=== PATIENT | female | born 1970 | race Hispanic/Latino ===

== ENCOUNTER 2017-10-02 07:10 | Outpatient (CLI) | payer OTHER | END 2017-10-02 07:11 | disposition home or self-care (01) | LOC: BICMAMMO 07:10 | PROVIDERS: ATTEND Family Medicine | DX: N63.10 Unspecified lump in the right breast, unspecified quadrant (principal) | CPT/HCPCS: G0206-RT; G0279 ==

== ENCOUNTER 2020-03-26 07:24 | Emergency (ER) | payer SELFPAY ==
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
== END 2020-03-26 11:18 | disposition home or self-care (01) ==
LOC: ERS 07:24
DX: S22.32XA Fracture of one rib, left side, initial encounter for closed fracture (principal); E11.9 Type 2 diabetes mellitus without complications; V69.9XXA Occupant (driver) (passenger) of heavy transport vehicle injured in unspecified traffic accident, initial encounter
CPT/HCPCS: 71045; 72170; 99284; G0390